=== PATIENT | female | born 1945 | race Caucasian/White ===

== ENCOUNTER 2016-10-19 22:25 | Inpatient (IN) | payer MEDICARE ==
[~2016-10-19] VITALS: Ht 165.1 cm; Wt 74.1 kg
[2016-10-19] MEDS ORDERED: PREDNISONE 5 MG5 MG PO (23:28)
[2016-10-19] MEDS ORDERED: LEVAQUIN TAB 5500 MG PO (23:30)
[2016-10-19] MEDS ORDERED: ZOFRAN 8 MG TAB8 MG PO (23:30)
[2016-10-19] MEDS ORDERED: COMPAZINE 10MG10 MG PO (23:31)
[2016-10-19] MEDS ORDERED: FOLIC ACID1 MG PO (23:32)
[2016-10-19] MEDS ORDERED: NORCO 5-325 TA1 EACH PO (23:32)
[2016-10-19] MEDS ORDERED: BUDESONIDE0.5 MG/2 M INH (23:33)
[2016-10-19] MEDS ORDERED: KLONOPIN1 MG PO (23:33)
[2016-10-19] MEDS ORDERED: LISINOPRIL20 MG PO (23:34)
[2016-10-19] MEDS ORDERED: ZOCOR 40 MG TAB40 MG PO (23:34)
[2016-10-19] MEDS ORDERED: VITAMIN D1000 UNIT PO (23:34)
[2016-10-19] MEDS ORDERED: ASPIRIN CHEWABL81 MG PO (23:35)
[2016-10-19] MEDS ORDERED: VENTOLIN/PROVE0.5 ML INH (23:36)
[2016-10-19] MEDS ORDERED: ALPRAZOLAM0.5 MG PO (23:36)
[2016-10-20 05:11] LABS: BUN/CREATININE RATIO 39 (0-10)
[2016-10-20 05:22] LABS: RED BLOOD COUNT 2.72 M/UL (4.00-5.10)
[2016-10-20 05:33] LABS: WHITE BLOOD COUNT 30.3 K/UL (4.5-11.0)
[2016-10-21 05:00] LABS: HEMOGLOBIN 7.1 gm/dl (12.3-15.3)
[2016-10-21 05:04] LABS: RED BLOOD COUNT 2.25 M/UL (4.00-5.10); WHITE BLOOD COUNT 11.5 K/UL (4.5-11.0)
[2016-10-21 05:18] LABS: BUN/CREATININE RATIO 54 (0-10)
[2016-10-22 04:30] LABS: HEMOGLOBIN 8.7 gm/dl (12.3-15.3)
[2016-10-22 04:32] LABS: RED BLOOD COUNT 2.77 M/UL (4.00-5.10); WHITE BLOOD COUNT 4.5 K/UL (4.5-11.0)
[2016-10-22 04:49] LABS: BUN/CREATININE RATIO 40 (0-10)
[2016-10-23 05:59] LABS: HEMOGLOBIN 8.3 gm/dl (12.3-15.3); RED BLOOD COUNT 2.63 M/UL (4.00-5.10)
[2016-10-23] MEDS ORDERED: SPIRIVA18 MCG INH (13:06)
[2016-10-23] MEDS ORDERED: PERFOROMIS20 MCG/2 M INH (13:07)
[2016-10-23 14:48] LABS: HEMOGLOBIN 8.5 gm/dl (12.3-15.3); RED BLOOD COUNT 2.67 M/UL (4.00-5.10)
== END 2016-10-23 16:24 | disposition home or self-care (01) | DRG 189 ==
LOC: PROG CARE 22:25 → M/S 10-22 23:50
PROVIDERS: Family Medicine; Hospitalist; ADMIT Internal Medicine
PROC: 5A09457 Assistance with Respiratory Ventilation, 24-96 Consecutive Hours, Continuous Positive Airway Pressure (ICD-10-PCS; principal; 2016-10-20)
PROC: 6A551Z2 Pheresis of Platelets, Multiple (ICD-10-PCS; 2016-10-20)
PROC: 30233N1 Transfusion of Nonautologous Red Blood Cells into Peripheral Vein, Percutaneous Approach (ICD-10-PCS; 2016-10-21)
PROC: 30233N1 Transfusion of Nonautologous Red Blood Cells into Peripheral Vein, Percutaneous Approach (ICD-10-PCS; 2016-10-21)
DX: J96.22 Acute and chronic respiratory failure with hypercapnia (principal); G92 Toxic encephalopathy; D61.810 Antineoplastic chemotherapy induced pancytopenia; J44.1 Chronic obstructive pulmonary disease with (acute) exacerbation; C34.90 Malignant neoplasm of unspecified part of unspecified bronchus or lung; C78.7 Secondary malignant neoplasm of liver and intrahepatic bile duct; T42.4X5A Adverse effect of benzodiazepines, initial encounter; T40.2X5A Adverse effect of other opioids, initial encounter; T45.1X5A Adverse effect of antineoplastic and immunosuppressive drugs, initial encounter; J96.21 Acute and chronic respiratory failure with hypoxia; I10 Essential (primary) hypertension; D72.829 Elevated white blood cell count, unspecified; H11.31 Conjunctival hemorrhage, right eye; S00.12XA Contusion of left eyelid and periocular area, initial encounter; W19.XXXA Unspecified fall, initial encounter; G89.29 Other chronic pain; F32.9 Major depressive disorder, single episode, unspecified; F41.9 Anxiety disorder, unspecified; Z87.891 Personal history of nicotine dependence; Z91.81 History of falling; Z79.82 Long term (current) use of aspirin; Z99.81 Dependence on supplemental oxygen; Z79.52 Long term (current) use of systemic steroids; Z79.51 Long term (current) use of inhaled steroids; Z79.891 Long term (current) use of opiate analgesic; Z79.899 Other long term (current) drug therapy; Z90.49 Acquired absence of other specified parts of digestive tract; Z98.890 Other specified postprocedural states
CPT/HCPCS: 36415; 36600; 71010; 80048; 80053; 82803; 85025; 85027; 86850; 86900; 86901; 86920; 94640; 94660; 94664; J1642; J2920; J7040; J7050; P9016; P9035; P9037; Q0162

== ENCOUNTER → 2016-12-18 | Outpatient (CLI) | payer MEDICARE ==
[~2016-12-18] MED LIST: ALPRAZOLAM0.5 MG PO; ASPIRIN CHEWABL81 MG PO; BUDESONIDE0.5 MG/2 M INH; COMPAZINE 10MG10 MG PO; FOLIC ACID1 MG PO; KLONOPIN1 MG PO; LEVAQUIN TAB 5500 MG PO; LISINOPRIL20 MG PO; NORCO 5-325 TA1 EACH PO; PERFOROMIS20 MCG/2 M INH; PREDNISONE 5 MG5 MG PO; SPIRIVA18 MCG INH; VENTOLIN/PROVE0.5 ML INH; VITAMIN D1000 UNIT PO; ZOCOR 40 MG TAB40 MG PO; ZOFRAN 8 MG TAB8 MG PO
== END ==
LOC: HEART 5 10:26
DX: J96.00 Acute respiratory failure, unspecified whether with hypoxia or hypercapnia (principal); R94.2 Abnormal results of pulmonary function studies; F17.210 Nicotine dependence, cigarettes, uncomplicated
CPT/HCPCS: 94060; 94729